=== PATIENT | male | born 1945 | race Caucasian/White ===

== ENCOUNTER 2021-02-10 06:25 | Day surgery (SDC) | payer OTHER ==
[~2021-02-10] VITALS: Ht 188 cm; Wt 152.0 kg
[~2021-02-10 06:25] MED LIST: Alphagan P5 ML; Amlodipine Bes2.5 MG PO; Betoptic S10 ML; CYCL10 PO; DONE5 PO; DYAZIDE 37.5-21 EACH PO; FINA5 PO; GABAPENTIN600 MG PO; LATA.005SO; LIDO5TO TOP; Norco 5-325 Ta1 EACH PO; OMEP20ER PO; Pravastatin Sod40 MG PO; SERT50 PO; TAMS.4ER PO; THERA-D2000 UNIT PO; TRAM50 PO; ZYRTEC10 M2 PO
--- NOTE | 2021-02-10 10:07 | NUR ---
13CC AIR REMOVED FROM R WRIST TR BAND. -BLEEDING OR SWELLING.
--- NOTE | 2021-02-10 10:50 | NUR ---
R WRIST TR BAND REMOVED. -BLEEDING OR SWELLING. PUNCTURE AREA CLEANED /C NS AND CLOTH DOT DRSG PLACED. R WRIST SPLINT REAPPLIED.
--- NOTE | 2021-02-10 10:51 | NUR ---
PT AND VERBALIZED UNDERSTANDING OF WRITTEN AND VERBAL D/C INST. IV REMOVED. PT TAKEN OUT OF THE HRT CENTER VIA W/C.
== END 2021-02-10 10:50 | disposition home or self-care (01) ==
LOC: MHTC 06:25
DX: I35.0 Nonrheumatic aortic (valve) stenosis (principal); J44.9 Chronic obstructive pulmonary disease, unspecified; E11.9 Type 2 diabetes mellitus without complications; I10 Essential (primary) hypertension; E66.01 Morbid (severe) obesity due to excess calories; K21.9 Gastro-esophageal reflux disease without esophagitis; I25.10 Atherosclerotic heart disease of native coronary artery without angina pectoris; E78.5 Hyperlipidemia, unspecified; Z68.41 Body mass index [BMI] 40.0-44.9, adult
CPT/HCPCS: 93454; 99152; C1769; C1894; J1644; J2250; J3010; J7030; J7050; Q9967

== ENCOUNTER 2021-07-11 16:37 | Inpatient (IN) | payer OTHER ==
[~2021-07-11] VITALS: Ht 188 cm; Wt 156.6 kg
[2021-07-11] MEDS ORDERED: LISI20 PO (17:06)
[2021-07-11 17:14] LABS: BASOPHILS ABSOLUTE AUTO 0.04 K/mm3 (0.00-0.23); BASOPHILS PERCENT AUTO 0 % (0-2); EOSINOPHILS ABSOLUTE AUTO 0.36 K/mm3 (0.00-0.68); EOSINOPHILS PERCENT AUTO 3 % (0-6); Hematocrit 48.1 % (37.0-53.0); Hemoglobin 15.5 g/dL (13.5-17.5); IMMATURE GRAN ABSOLUTE AUTO 0.08 K/mm3 (0.00-0.10); IMMATURE GRAN PERCENT AUTO 1 % (0-1); LYMPHOCYTES ABSOLUTE AUTO 2.98 K/mm3 (0.84-5.20); LYMPHOCYTES PERCENT AUTO 24 % (21-46); MONOCYTES ABSOLUTE AUTO 1.29 K/mm3 (0.16-1.47); MONOCYTES PERCENT AUTO 10 % (4-13); Mean Corpuscular HGB 27.6 pg (26.0-34.0); Mean Corpuscular HGB Conc 32.2 g/dL (31.5-36.5); Mean Corpuscular Volume 86 fL (80-100); Mean Platelet Volume 9.9 fL (9.1-12.4); NEUTROPHILS ABSOLUTE AUTO 7.82 K/mm3 (1.96-9.15); NEUTROPHILS PERCENT AUTO 62 % (41-73); Platelet Count 281 K/mm3 (150-400); RDW Coefficient Variation 14.4 % (11.7-14.2); RDW Standard Deviation 44.5 fL (35.1-46.3); Red Blood Cell Count 5.61 M/mm3 (4.30-5.90); White Blood Cell Count 12.57 K/mm3 (4.00-11.30)
[2021-07-11 17:34] LABS: Albumin, Blood 3.3 g/dL (3.4-5.0); Albumin/Globulin Ratio 0.9 (0.8-1.8); Bilirubin, Total 0.5 mg/dL (0.1-1.0); Bun/Creatinine Ratio 17.6 (12.0-20.0); Calcium, Blood 9.6 mg/dL (8.5-10.1); Creatinine, Blood 1.36 mg/dL (0.60-1.20); Globulin, Blood 3.8 g/dL (2.2-4.0); Potassium, Blood 3.9 mmol/L (3.5-5.5); Total Protein, Blood 7.1 g/dL (6.4-8.2)
--- NOTE | 2021-07-11 22:40 | NUR ---
ASSUMED CARE FROM ER PATIENT ARRIVED TO ICU 3 FROM ER WITH CARDIZEM INF @ 15ML/HR AND HR IN MID 130'S. ON ROOM AIR WITH SPO2 IN MID TO HIGH 90'S-OTHER VS STABLE AT THIS TIME. PATIENT IS AWAKE AND HOLDS PLEASANT CONVERSATION WITH STAFF. ANSWERS QUESTIONS APPROPRIATELY. BELONGINGS BAG PLACED IN OPEN CUPBOARD. NO FAMILY OR VISITORS AT BEDSIDE. REPORT COMPLETED WITH JUAN R SAAVEDRA.
[2021-07-11 23:05] LABS: Anti-Xa UFH, PHA Monitoring <0.10 IU/mL; International Normalized Ratio 1.01; Prothrombin Time Results 10.6 Sec (9.7-11.5)
[2021-07-11] MEDS ORDERED: DICLOFENAC PO (23:32)
--- NOTE | 2021-07-12 05:24 | NUR ---
SHIFT SUMMARY PATIENT WAS SWITCHED FROM CARDIZEM TO AMIODARONE AFTER INCREASED CARDIZEM OF 20ML/HR HAD NO EFFECT ON HEART RATE. AT THIS TIME PATIENT IS STILL ON INITIAL DOSE OF 34.5ML/HR AMIODARONE W/ HR DECREASE FROM MID 130'S TO MID 12O'S. HEPARIN GTT STARTED AT 15 UNITS/KG/HR FOLLOWING BOLUS OF 5,000 UNITS. PATIENT REQUIRED ONE DOSE OF ZOFRAN 4MG IV FOR N/V, ONE DOSE GABAPENTIN 300MG PO FOR SLEEP AND ONE DOSE OF NORCO 5MG/325MG PO FOR RT HIP PAIN WITH IMPROVEMENT. PATIENT USED URINAL FOR TOTAL OUTPUT OF 200ML URINE DURING SHIFT. NO OTHER CHANGES DURING SHIFT.
[2021-07-12 06:11] LABS: BASOPHILS ABSOLUTE AUTO 0.05 K/mm3 (0.00-0.23); BASOPHILS PERCENT AUTO 0 % (0-2); EOSINOPHILS ABSOLUTE AUTO 0.42 K/mm3 (0.00-0.68); EOSINOPHILS PERCENT AUTO 4 % (0-6); Hematocrit 44.5 % (37.0-53.0); Hemoglobin 14.3 g/dL (13.5-17.5); IMMATURE GRAN ABSOLUTE AUTO 0.13 K/mm3 (0.00-0.10); IMMATURE GRAN PERCENT AUTO 1 % (0-1); LYMPHOCYTES ABSOLUTE AUTO 3.04 K/mm3 (0.84-5.20); LYMPHOCYTES PERCENT AUTO 27 % (21-46); MONOCYTES ABSOLUTE AUTO 1.61 K/mm3 (0.16-1.47); MONOCYTES PERCENT AUTO 14 % (4-13); Mean Corpuscular HGB 27.6 pg (26.0-34.0); Mean Corpuscular HGB Conc 32.1 g/dL (31.5-36.5); Mean Corpuscular Volume 86 fL (80-100); Mean Platelet Volume 9.9 fL (9.1-12.4); NEUTROPHILS ABSOLUTE AUTO 6.06 K/mm3 (1.96-9.15); NEUTROPHILS PERCENT AUTO 54 % (41-73); Platelet Count 216 K/mm3 (150-400); RDW Coefficient Variation 14.5 % (11.7-14.2); RDW Standard Deviation 45.4 fL (35.1-46.3); Red Blood Cell Count 5.18 M/mm3 (4.30-5.90); White Blood Cell Count 11.31 K/mm3 (4.00-11.30)
[2021-07-12 06:59] LABS: Alanine Aminotransfer (ALT/SGP 32 U/L (12-78); Albumin/Globulin Ratio 0.9 (0.8-1.8); Alk Phos 60 U/L (50-136); Anion Gap 7 mmol/L (6-16); Aspartate Aminotrans (AST/SGOT 23 U/L (12-37); Bilirubin, Total 0.7 mg/dL (0.1-1.0); Blood Urea Nitrogen 24 mg/dL (8-24); Bun/Creatinine Ratio 19.4 (12.0-20.0); CHOL/HDL RATIO 4.6; CO2, Blood 23 mmol/L (21-32); Calcium, Blood 9.4 mg/dL (8.5-10.1); Chloride, Blood 110 mmol/L (98-108); Cholesterol 151 mg/dL (50-200); Creatinine, Blood 1.24 mg/dL (0.60-1.20); Globulin, Blood 3.3 g/dL (2.2-4.0); Glomerular Filtration Rate 56 (60-); Glucose, Blood 127 mg/dL (70-99); HDL Cholesterol 33 mg/dL (>39); LDL/HDL RATIO 2.5; Low Density Lipoprotein Chol 81 mg/dL (0-110); Potassium, Blood 3.7 mmol/L (3.5-5.5); Sodium, Blood 140 mmol/L (136-145); Total Protein, Blood 6.3 g/dL (6.4-8.2); Triglycerides 184 mg/dL (30-160); Very Low Density Lipoprot Chol 36 mg/dL (6-32)
--- NOTE | 2021-07-12 19:48 | NUR ---
SHIFT SUMMARY PT A/O X4 AND COOPERATIVE OF CARE. PT HR REMAINED IN 120-130'S THROUGHOUT SHIFT, RECIEVED AMIO BOLUSES AND AMIO DRIP. PT BP'S RAN 140'S BUT DROPPED TO 110'S AFTER WORKING WITH [employer] THERAPY. PT REPORTED "FEELING DIZZY AND SWEATY." PT SHORTLY EXPRESSED N/V, DR NOTIFIED BY INVOICE CHECKER. PT WAS MOVED FROM RECLINER TO BED VIA LIFT DUE TO REPORT OF DIZZINESS. PT TO BE NPO AFTER MIDNIGHT FOR SHAVONNE AND CARDIOVERSION IN THE MORNING. PT USED URINAL WHILE IN BED FOR ELIMINATION. AT BEDSIDE FOR MOST OF SHIFT, PLANS TO BE PRESENT FOR CARDIOVERSION. HEPARIN RUNNING PER EMAR.
[2021-07-13 03:51] LABS: Hematocrit 44.7 % (37.0-53.0); Hemoglobin 14.4 g/dL (13.5-17.5); Mean Platelet Volume 10.3 fL (9.1-12.4); Platelet Count 207 K/mm3 (150-400)
[2021-07-13 04:10] LABS: Albumin/Globulin Ratio 0.9 (0.8-1.8); Bilirubin, Total 0.5 mg/dL (0.1-1.0); Bun/Creatinine Ratio 16.7 (12.0-20.0); Calcium, Blood 9.1 mg/dL (8.5-10.1); Creatinine, Blood 1.38 mg/dL (0.60-1.20); Globulin, Blood 3.3 g/dL (2.2-4.0); Potassium, Blood 3.8 mmol/L (3.5-5.5); Total Protein, Blood 6.3 g/dL (6.4-8.2)
--- NOTE | 2021-07-13 06:35 | NUR ---
SHIFT SUMMARY PATIENT TRANSITIONED FROM IV AMIODARONE TO PO AMIODARONE AT BEGINNING OF THE SHIFT. PATIENT HAS BEEN NPO SINCE 0000 IN PREP FOR SHAVONNE AND CARDIOVERSION TODAY PER DR. SIEGEL, INCLUDING MEDICATIONS AND ICE CHIPS. HR MAINTAINED IN 120'S; BP REMAINED STABLE. HEPARIN INF @ 15 UNITS/KG/HR. NO OTHER CHANGES DURING SHIFT.
--- NOTE | 2021-07-13 17:57 | NUR ---
SHIFT SUMMARY; ASSUMED CARE AT 0700, SLEEPING BUT ARROUSABLE TO VOICE. HOME CPAP IN PLACE. SHAVONNE/CARDIO VERSION TODAY WITH ANESTHESIA. TOLERATED PROCEDURE WELL. SINUS 60'S FOR REMAINDER OF SHIFT, VSS. REPOSITIONS SELF IN BED, PLACED HOME CPAP WHEN NAPPING, USES URINAL IN BED. SPOUSE AT BEDSIDE DURING SHIFT. HEPARIN INFUSING AT 15GTT. PLEASANT AND COOPERATIVE WITH CARE. WILL CONTINUE TO MONITOR AND TREAT UNTIL CHANGE OF SHIFT.
--- NOTE | 2021-07-13 21:15 | NUR ---
ASSUMED CARE PATIENT SITTING UP IN BED WATCHING TELEVISION. CPAP, CELL PHONE, WATER, URINAL ON BEDSIDE TABLE. NO VISITORS OR FAMILY AT BEDSIDE. HEPARIN GTT INF @ 15 UNITS/KG/HR. MONITOR SHOWS BBB W/ RATE IN 70'S. OTHER VS STABLE. REPORT COMPLETED W/ YASMANI PETE.
[2021-07-14 04:55] LABS: Hematocrit 41.9 % (37.0-53.0); Hemoglobin 13.3 g/dL (13.5-17.5); Mean Platelet Volume 10.4 fL (9.1-12.4); Platelet Count 178 K/mm3 (150-400)
[2021-07-14 05:19] LABS: Bun/Creatinine Ratio 17.1 (12.0-20.0); Calcium, Blood 9.2 mg/dL (8.5-10.1); Creatinine, Blood 1.64 mg/dL (0.60-1.20); Potassium, Blood 3.8 mmol/L (3.5-5.5)
--- NOTE | 2021-07-14 06:05 | NUR ---
SHIFT SUMMARY PATIENT SLEPT T/O SHIFT. USED HOME CPAP WHEN SLEEPING, ROOM AIR WHEN AWAKE WITH VSS. HR REMAINED 50'S-80'S IN SINUS RHYTHM. HEPARIN CONTINUES INF @ 15 UNITS/KG/HR. USED URINAL AT BEDSIDE. NO CHANGES DURING SHIFT.
--- NOTE | 2021-07-14 09:15 | NUR ---
ASSUMED CARE: REPORT RECEIVED FROM AZAR Bueno RN. ASSUMED CARE OF THIS PT AT APPROX 0700. ON ASSESSMENT, THE PT IS AWAKE, A&O TO ALL. HE IS PLEASANT & COOPERATIVE W/ STAFF, DENIES PAIN. LS CLEAR, PT ON RA W/ O2 SATS > 95%. MONITOR SHOWS SR W/ HR 60-80s, BP STABLE. PT TOLERATING PO INTAKE WELL W/ NO GI COMPLAINTS. VOIDS URINE USING URINAL INDEPENDENTLY AT BEDSIDE. SKIN CONDITION OVERALL INTACT. Q2H REPOSITIONING W/ REMINDERS FROM STAFF. PT UP WORKING W/ THERAPY THIS AM & CURRENTLY SITTING UP IN CHAIR. HE IS HOPEFUL TO GO HOME TODAY. WILL CONTINUE TO MONITOR & UPDATE NEEDED.
[2021-07-14] MEDS ORDERED: Amiodarone HCl200 MG PO ×3 (13:13→13:18)
[2021-07-14] MEDS ORDERED: ELIQUIS5 M2 PO (13:18)
[2021-07-14] MEDS ORDERED: CLOP75 PO (13:20)
[2021-07-14] MEDS ORDERED: METO25ER PO (13:21)
[2021-07-14] MEDS ORDERED: SPIR50 PO (13:23)
[2021-07-14] MEDS ORDERED: TORSE20 PO (13:24)
--- NOTE | 2021-07-14 15:44 | NUR ---
DISCHARGE TO HOME: THE PT CONTINUES TO DO WELL THIS AFTERNOON & IS STABLE FOR DISCHARGE HOME, ORDERS PLACED BY DR VÁZQUEZ. ALL MEDICATIONS RECONCILLED & FAXED TO [facility] FOR PT TO [facility] RIBBON MACHINE OPERATOR THIS EVENING. HE VERABLIZES UNDERSTANDING OF PICKING UP MEDS ONCE DISCHARGED SO THAT HE CAN BEGIN TAKING THEM TONIGHT. PIVs & ALL MONITORS REMOVED. GWENDOLYN CARTAGENA, HAS HELPED THE PT GET DRESSED & GATHERED ALL OF HIS BELONGINGS. THE PT VERBALIZES UNDERSTANDING OF HIS DISCHARGE INSTRUCTIONS & DENIES FUTHER QUESTIONS. THIS RN HAS TAKEN THE PT OUT VIA WC & REPEATED D/C INSTRUCTIONS TO HIS , GAYE, AT APPROX 1530.
== END 2021-07-14 15:30 | disposition home or self-care (01) | DRG 309 ==
LOC: ER 16:37 → ICUW 22:30 → ICUE 22:30
PROVIDERS: Family Medicine; Pharmacist; Physician Assistant; Student in an Organized Health Care Education/Training Program; ADMIT Internal Medicine
PROC: 5A2204Z Restoration of Cardiac Rhythm, Single (ICD-10-PCS; principal; 2021-07-13)
PROC: 5A09357 Assistance with Respiratory Ventilation, Less than 24 Consecutive Hours, Continuous Positive Airway Pressure (ICD-10-PCS; 2021-07-13)
DX: I48.91 Unspecified atrial fibrillation (principal); N17.9 Acute kidney failure, unspecified; Z68.41 Body mass index [BMI] 40.0-44.9, adult; Z66 Do not resuscitate; I48.92 Unspecified atrial flutter; D72.829 Elevated white blood cell count, unspecified; I44.7 Left bundle-branch block, unspecified; I10 Essential (primary) hypertension; J44.9 Chronic obstructive pulmonary disease, unspecified; E66.01 Morbid (severe) obesity due to excess calories; F41.9 Anxiety disorder, unspecified; N40.0 Benign prostatic hyperplasia without lower urinary tract symptoms; G47.33 Obstructive sleep apnea (adult) (pediatric); E78.5 Hyperlipidemia, unspecified; Z79.899 Other long term (current) drug therapy; Z95.2 Presence of prosthetic heart valve; E11.9 Type 2 diabetes mellitus without complications; Z90.49 Acquired absence of other specified parts of digestive tract; Z98.890 Other specified postprocedural states; Y71.2 Prosthetic and other implants, materials and accessory cardiovascular devices associated with adverse incidents
CPT/HCPCS: 36415; 71045; 80048; 80053; 80061; 82947; 83880; 84443; 84484; 85014; 85018; 85025; 85049; 85520; 85610; 85730; 92960; 93005; 93010; 93312; 93325; 94640; 94660; 94664; 96365; 96375; 96376; 97110; 97162; 97166; 97530; 99285-25; A9270; C8929; J0282; J1160; J1644; J2405; J2704; J7030; J7060; J7120; Q9957

== ENCOUNTER 2021-10-09 14:16 | Emergency (ER) | payer OTHER ==
[~2021-10-09] VITALS: Ht 188 cm; Wt 158.8 kg
[~2021-10-09 14:16] MED LIST changes: +Amiodarone HCl200 MG PO; +CLOP75 PO; +DICLOFENAC PO; +ELIQUIS5 M2 PO; +LISI20 PO; +METO25ER PO; +SPIR50 PO; +TORSE20 PO
[2021-10-09 14:44] LABS: BASOPHILS ABSOLUTE AUTO 0.04 K/mm3 (0.00-0.23); BASOPHILS PERCENT AUTO 0 % (0-2); EOSINOPHILS ABSOLUTE AUTO 0.27 K/mm3 (0.00-0.68); EOSINOPHILS PERCENT AUTO 2 % (0-6); Hematocrit 40.3 % (37.0-53.0); Hemoglobin 13.1 g/dL (13.5-17.5); IMMATURE GRAN ABSOLUTE AUTO 0.07 K/mm3 (0.00-0.10); IMMATURE GRAN PERCENT AUTO 1 % (0-1); LYMPHOCYTES ABSOLUTE AUTO 2.13 K/mm3 (0.84-5.20); LYMPHOCYTES PERCENT AUTO 17 % (21-46); MONOCYTES ABSOLUTE AUTO 0.82 K/mm3 (0.16-1.47); MONOCYTES PERCENT AUTO 7 % (4-13); Mean Corpuscular HGB 27.9 pg (26.0-34.0); Mean Corpuscular HGB Conc 32.5 g/dL (31.5-36.5); Mean Corpuscular Volume 86 fL (80-100); Mean Platelet Volume 9.8 fL (9.1-12.4); NEUTROPHILS ABSOLUTE AUTO 9.15 K/mm3 (1.96-9.15); NEUTROPHILS PERCENT AUTO 73 % (41-73); Platelet Count 195 K/mm3 (150-400); RDW Standard Deviation 43.9 fL (35.1-46.3); White Blood Cell Count 12.48 K/mm3 (4.00-11.30)
[2021-10-09 14:56] LABS: Albumin/Globulin Ratio 0.9 (0.8-1.8); Bilirubin, Total 0.6 mg/dL (0.1-1.0); Bun/Creatinine Ratio 17.6 (12.0-20.0); Calcium, Blood 9.6 mg/dL (8.5-10.1); Creatinine, Blood 1.25 mg/dL (0.60-1.20); Globulin, Blood 3.5 g/dL (2.2-4.0); Total Protein, Blood 6.5 g/dL (6.4-8.2)
[2021-10-09 15:23] LABS: Influenza A, PCR NEGATIVE (NEGATIVE); Influenza B, PCR NEGATIVE (NEGATIVE); Resp Syncytial Virus, PCR NEGATIVE (NEGATIVE); SARS-Cov-2 (COVID-19) PCR, MMC NEGATIVE (NEGATIVE)
[2021-10-09 16:39] LABS: Source, Urine Clean Catch
[2021-10-09 16:50] LABS: Appearance, Urine Clear (Clear); Bilirubin, Urine Neg (Neg); Blood, Urine Neg (Neg); Color, Urine Yellow (P-Yellow); Glucose Qualitative, Urine Neg (Neg); Ketones, Urine Neg (Neg); Leukocyte Esterase, Urine Neg (Neg); Nitrite, Urine Neg (Neg); Protein, Urine 1+ (Neg); Specific Gravity, Urine 1.025 (1.003-1.022); Urobilinogen, Urine NORM (Normal)
[2021-10-09] MEDS ORDERED: AZIT250 PO (17:39)
[2021-10-09] MEDS ORDERED: ONDA4ODT MM (17:39)
[2021-10-09] MEDS ORDERED: AMOCLA875 PO (17:39)
== END 2021-10-09 17:55 | disposition home or self-care (01) ==
LOC: ER 14:16
PROVIDERS: Student in an Organized Health Care Education/Training Program
DX: J18.9 Pneumonia, unspecified organism (principal); R11.2 Nausea with vomiting, unspecified; Z20.822 Contact with and (suspected) exposure to COVID-19; I10 Essential (primary) hypertension; J44.9 Chronic obstructive pulmonary disease, unspecified; G47.30 Sleep apnea, unspecified; E11.9 Type 2 diabetes mellitus without complications; K21.9 Gastro-esophageal reflux disease without esophagitis; Z79.899 Other long term (current) drug therapy; Z79.01 Long term (current) use of anticoagulants; Z79.02 Long term (current) use of antithrombotics/antiplatelets
CPT/HCPCS: 0241U; 36415; 71046; 74018; 80053; 83605; 83690; 84484; 85025; 93005; 93010; A9270; J0456; J0696; J7050; J7120

== ENCOUNTER 2023-07-12 14:15 | Inpatient (IN) | payer OTHER ==
[~2023-07-12] VITALS: Ht 188 cm; Wt 146.0 kg
[~2023-07-12 14:15] MED LIST changes: +AMOCLA875 PO; +AZIT250 PO; +Amoxicillin500 MG PO; -Betoptic S10 ML; +Betoptic S10 ML RIGHTEYE; +CEPH500 PO; -LATA.005SO; +LATA.005SO RIGHTEYE; -METO25ER PO; +METO50ER PO; +ONDA4ODT MM; +ONDA4ODT SL; +Zithromax250 MG PO
[2023-07-12 15:23] LABS: BASOPHILS ABSOLUTE AUTO 0.03 K/mm3 (0.00-0.23); BASOPHILS PERCENT AUTO 0 % (0-2); EOSINOPHILS ABSOLUTE AUTO 0.13 K/mm3 (0.00-0.68); EOSINOPHILS PERCENT AUTO 1 % (0-6); Hematocrit 35.5 % (37.0-53.0); Hemoglobin 10.6 g/dL (13.5-17.5); IMMATURE GRAN ABSOLUTE AUTO 0.04 K/mm3 (0.00-0.10); IMMATURE GRAN PERCENT AUTO 0 % (0-1); LYMPHOCYTES ABSOLUTE AUTO 1.66 K/mm3 (0.84-5.20); LYMPHOCYTES PERCENT AUTO 16 % (21-46); MONOCYTES ABSOLUTE AUTO 0.97 K/mm3 (0.16-1.47); MONOCYTES PERCENT AUTO 9 % (4-13); Mean Corpuscular HGB Conc 29.9 g/dL (31.5-36.5); Mean Corpuscular Volume 77 fL (80-100); Mean Platelet Volume 9.9 fL (9.1-12.4); NEUTROPHILS ABSOLUTE AUTO 7.45 K/mm3 (1.96-9.15); NEUTROPHILS PERCENT AUTO 73 % (41-73); Platelet Count 286 K/mm3 (150-400); RDW Coefficient Variation 16.4 % (11.7-14.2); RDW Standard Deviation 45.6 fL (35.1-46.3); Red Blood Cell Count 4.61 M/mm3 (4.30-5.90); White Blood Cell Count 10.28 K/mm3 (4.00-11.30)
[2023-07-12 15:40] LABS: Albumin, Blood 3.4 g/dL (3.4-5.0); Albumin/Globulin Ratio 0.9 (0.8-1.8); Bilirubin, Total 0.9 mg/dL (0.1-1.0); Bun/Creatinine Ratio 13.7 (12.0-20.0); Calcium, Blood 9.7 mg/dL (8.5-10.1); Creatinine, Blood 1.53 mg/dL (0.60-1.20); Globulin, Blood 3.9 g/dL (2.2-4.0); Potassium, Blood 3.8 mmol/L (3.5-5.5); Total Protein, Blood 7.3 g/dL (6.4-8.2)
[2023-07-12 16:19] LABS: Source, Urine Clean Catch
[2023-07-12 16:29] LABS: Appearance, Urine Clear (Clear); Bilirubin, Urine Neg (Neg); Blood, Urine Neg (Neg); Color, Urine Yellow (P-Yellow); Glucose Qualitative, Urine 4+ (Neg); Ketones, Urine Neg (Neg); Leukocyte Esterase, Urine Neg (Neg); Nitrite, Urine Neg (Neg); Protein, Urine Neg (Neg); Specific Gravity, Urine 1.015 (1.003-1.022); Urobilinogen, Urine NORM (Normal)
[2023-07-12] MEDS ORDERED: NS 1,000 ML IV SCH (17:35)
[2023-07-12] MEDS ORDERED: Acetaminophen 325 MG TABLET PO ONE (17:40)
[2023-07-12] MEDS ORDERED: Acetaminophen 325 MG TABLET PO PRN (19:40)
[2023-07-12 20:17] LABS: Influenza A, PCR NEGATIVE (NEGATIVE); Influenza B, PCR NEGATIVE (NEGATIVE); Resp Syncytial Virus, PCR NEGATIVE (NEGATIVE); SARS-Cov-2 (COVID-19) PCR, MMC NEGATIVE (NEGATIVE)
[2023-07-12] MEDS ORDERED: Apixaban 5 MG Tab PO SCH (21:00)
[2023-07-12] MEDS ORDERED: ATORVASTATIN CA40 M1 PO (21:29)
[2023-07-12] MEDS ORDERED: JARDIANCE25 MG PO (21:29)
[2023-07-12] MEDS ORDERED: ROPINIROLE HC0.2510 PO (21:30)
[2023-07-12] MEDS ORDERED: FOSAMAX70 MG PO (21:30)
[2023-07-12] MEDS ORDERED: LOSARTAN POTASS25 M2 PO (21:31)
[2023-07-12] MEDS ORDERED: EUTHYROX50 MC1 PO (21:31)
[2023-07-12] MEDS ORDERED: TAMS.4ER PO (22:02)
[2023-07-12] MEDS ORDERED: ERYT.5TO BOTHEYES (22:03)
[2023-07-12] MEDS ORDERED: CLOBETASOL EMOL15 G1 TOP (22:04)
[2023-07-12] MEDS ORDERED: GORMEL TEN228 G1 TOP (22:05)
[2023-07-12] MEDS ORDERED: [UNRECOGNIZED DRUG - OTHER] TOP (22:05)
[2023-07-12] MEDS ORDERED: GENTEAL TEARS S10 GM BOTHEYES (22:13)
[2023-07-12] MEDS ORDERED: SIMBRINZA 1%-0.28 M1 RIGHTEYE (22:15)
[2023-07-12] MEDS ORDERED: ALBU90OI INH (22:19)
[2023-07-12 22:21] VITALS: BP 143/66
[2023-07-12] MEDS ORDERED: ALEVE ARTHRITI100 GM TOP (22:22)
[2023-07-12] MEDS ORDERED: OXYC5 PO (22:23)
--- NOTE | 2023-07-12 22:52 | NUR ---
ADMIT NOTE TELEMETRY ON PATIENT. 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 30-40'S BPM. INFORMED HOSPITALIST. ORDER TO TRANSFER PATIENT TO ICU RECEIVED
[2023-07-12 23:15] VITALS: BP 155/88
[2023-07-12 23:30] VITALS: BP 130/114
[2023-07-12] MEDS ORDERED: JARDIANCE10 MG (23:33)
[2023-07-12] MEDS ORDERED: Lactated Ringer's 1,000 ML IV SCH (23:45)
[2023-07-13] VITALS (77 sets, daily range): BP systolic 100–172; BP diastolic 53–116
[2023-07-13] MEDS ORDERED: Atropine Sulfate 0.1 MG/ML 10ML SYR IV ONE (00:20)
[2023-07-13] MEDS ORDERED: LORazepam 2 MG/ML 1ML Injection IV ONE ×2 (00:30→05:55)
--- NOTE | 2023-07-13 01:41 | NUR ---
ASSUMED CARE PT ARRIVED IN UNIT W/ HR 50-60'S ASYMPTOMATIC. MID ASSESSMENT/ZOLL PAD PLACEMENT, PT HR SUSTAINED IN THE 30-40'S W/ TELEMTRY SHOWING A MOBITZ TYPE 2. PT WAS SYMPTOMATIC W/ STATED DIZZINESS, BLUE LIPS, AND DISORIENTATION. TRANSCUTANEOUS PACING WAS INITIATED W/ SETTINGS MA 30, RATE 54. PT IS CURRENTLY RESTING QUIETLY W/ CPAP ON. BLOOD PRESSURE >65 W/ RATE IN THE HIGH 54-60'S. SPO2 >92%. PT DENIES SYMPTOMS AT THIS TIME.
[2023-07-13 03:48] LABS: BASOPHILS ABSOLUTE AUTO 0.02 K/mm3 (0.00-0.23); BASOPHILS PERCENT AUTO 0 % (0-2); EOSINOPHILS ABSOLUTE AUTO 0.18 K/mm3 (0.00-0.68); EOSINOPHILS PERCENT AUTO 2 % (0-6); Hematocrit 34.7 % (37.0-53.0); Hemoglobin 10.2 g/dL (13.5-17.5); IMMATURE GRAN ABSOLUTE AUTO 0.05 K/mm3 (0.00-0.10); IMMATURE GRAN PERCENT AUTO 1 % (0-1); LYMPHOCYTES ABSOLUTE AUTO 1.82 K/mm3 (0.84-5.20); LYMPHOCYTES PERCENT AUTO 20 % (21-46); MONOCYTES ABSOLUTE AUTO 0.86 K/mm3 (0.16-1.47); MONOCYTES PERCENT AUTO 9 % (4-13); Mean Corpuscular HGB 22.8 pg (26.0-34.0); Mean Corpuscular HGB Conc 29.4 g/dL (31.5-36.5); Mean Corpuscular Volume 78 fL (80-100); Mean Platelet Volume 9.7 fL (9.1-12.4); NEUTROPHILS ABSOLUTE AUTO 6.25 K/mm3 (1.96-9.15); NEUTROPHILS PERCENT AUTO 68 % (41-73); Platelet Count 263 K/mm3 (150-400); RDW Coefficient Variation 16.4 % (11.7-14.2); RDW Standard Deviation 46.5 fL (35.1-46.3); Red Blood Cell Count 4.47 M/mm3 (4.30-5.90); White Blood Cell Count 9.18 K/mm3 (4.00-11.30)
--- NOTE | 2023-07-13 04:01 | NUR ---
UPDATE DR HANSON NOTIFIED OF mA AND RATE W/ NO NEW ORDERS. RATE SET TO 54 W/ PT ASYMPTOMATIC AT THAT RATE. NO EPISODES SINCE TRANSCUTANEOUS PACING.
[2023-07-13 04:09] LABS: Albumin, Blood 3.1 g/dL (3.4-5.0); Albumin/Globulin Ratio 0.9 (0.8-1.8); Bilirubin, Total 0.6 mg/dL (0.1-1.0); Bun/Creatinine Ratio 13.1 (12.0-20.0); Calcium, Blood 8.9 mg/dL (8.5-10.1); Creatinine, Blood 1.6 mg/dL (0.60-1.20); Globulin, Blood 3.5 g/dL (2.2-4.0); Magnesium, Blood 2.5 mg/dL (1.6-2.4); Potassium, Blood 3.1 mmol/L (3.5-5.5); Total Protein, Blood 6.6 g/dL (6.4-8.2)
[2023-07-13] MEDS ORDERED: Potassium Chloride 40 MEQ in NS 250 ML IV ONE (04:20)
--- NOTE | 2023-07-13 05:29 | NUR ---
UPDATE PT WALLET IN LOCKBOX.
--- NOTE | 2023-07-13 05:29 | NUR ---
SHIFT SUMMARY PT SLEPT SINCE LAST UPDATE. NO ACUTE EVENTS SINCE. PT FREQUENTLY TURNING IN BED W/ MANAGEMENT OF PADS/WIRES NEEDED INTERMITTENTLY. PACER SETTINGS REMAIN UNCHANGED. SPO2 >92% ON CPAP; SBP 150'S*; RATE VARIABLE W/ 54-60'S. PT CONTINUES REMAIN ASYMPTOMATIC.
[2023-07-13] MEDS ORDERED: FentaNYL Citrate 50 MCG/ML 2 ML Injection ONE (06:08)
[2023-07-13] MEDS ORDERED: FentaNYL Citrate 50 MCG/ML 2 ML Injection IV PRN (06:10)
[2023-07-13] MEDS ORDERED: FentaNYL Citrate 50 MCG/ML 2 ML Injection IV ONE (06:10)
--- NOTE | 2023-07-13 06:21 | NUR ---
UPDATE DR HANSON AT BEDSIDE TO ASSESS PT. PT WOKE AND WAS DISORIENTED, YELLING AT HOSPITALIST ABOUT WHY PT IS BEING PUT "THROUGH THIS". REORIENTED PT AND REINFORCED EDUCATION ON PURPOSE OF PACER. PT IS ABLE TO ANSWER YEAR, PLACE, SITUATION CORRECTLY. PT CURRENTLY IS RESTING QUIETLY W/ FENTANYL PER EMAR FOR PACING. SETTINGS REMAIN UNCHANGED W/ CAPTURE VIEWED AND FELT PER RADIAL PULSE. PADS CHANGED AT 0600 D/T PT'S FREQUENT TURNING ALMOST REMOVING OLD PATCH. PT ALSO MENTIONED BEING UPSET AT BEING FREQUENTLY ASKED TO STRAIGHTEN ARM, EDUCATED PT THAT THIS WAS TO PREVENT KINKING OF IV CATHETER.
[2023-07-13] MEDS ORDERED: CALCITONIN-SAL3.7 M1 (08:09)
[2023-07-13] MEDS ORDERED: OZEMPIC0.25 MG/02 SC (08:10)
--- NOTE | 2023-07-13 08:35 | NUR ---
DR. MAYNARD HERE TO SEE PATIENT. DOCTOR UPDATED ON PATIENT STATUS. INFORMED THAT PATIENT RECEIVING POTASSIUM REPLACEMENT THIS AM. INFORMED THAT PATIENT WAKING ONLY TO NOXIOUS STIMULI AT THIS TIME BUT THAT PATIENT RECEIVED PRN FENTANYL AROUND 0645 THIS AM. INFORMED THAT PATIENT HAS BEEN 100% PACED SINCE ASSUMED CARE OF PATIENT. INFORMED THAT NIGHT RN REPORTED THAT PATIENT HAS BEEN PACED 100% THE LAST COUPLE OF HOURS AND OFF AND ON BEFORE THAT. INFORMED THAT RECEIVED REPORT THAT PATIENT CAME DOWN TO ICU FOR HR IN THE 30S AND THAT PATIENT WAS SYMPTOMATIC WITH BLUE LIPS, DIZZY AND MENTATION CHANGES. INFORMED THAT RECEIVED REPORT THAT PATIENT WAS TRYING TO DIG THROUGH UNLABELED HOME PILL CONTAINER ON EARLIER SHIFT AND ALSO ONLY SEES 10% OUT OF R EYE ONLY. DR. MAYNARD TURNED ZOLL PACER OFF AND STATED TO ADMINISTER ATROPINE IF PATIENT HAS SYMPTOMATIC BRADYCARDIA LESS THAN 40.
[2023-07-13] MEDS ORDERED: Atropine Sulfate 0.1 MG/ML 10ML SYR IV PRN (08:40)
[2023-07-13] MEDS ORDERED: HydrALAZINE HCl 20 MG / ML 1ML Vial IV PRN (08:50)
[2023-07-13] MEDS ORDERED: Enoxaparin 40 MG/0.4 ML SYR SC SCH (09:00)
--- NOTE | 2023-07-13 09:30 | NUR ---
INITIAL ASSESSMENT PATIENT SLEEPY AND RESPONSIVE TO NOXIOUS STIMULI WHEN CAME ON SHIFT. PATIENT HAD RECEIVED PRN FENTANYL AROUND 0645 THIS AM. PATIENT NOW AWAKE, ALERT AND ORIENTED X 4. PATIENT AFEBRILE. PATIENT STATES HE HAS SOME PAIN IN L RIBS/ HIP FROM RECENT FALL AT HOME BUT THAT THE PAIN IS MANAGEABLE AT THIS TIME. PATIENT SLIGHTLY WEAK BUT ABLE TO MOVE ALL EXTREMITIES AND REPOSITION SELF IN BED. PATIENT BLIND IN L EYE AND REPORTS HE HAS 10% VISION IN R EYE. PATIENT SATTING 90% AND GREATER ON RA WHILE AWAKE. PATIENT ON CPAP FOR SLEEP. LUNGS CLEAR/ DIM. PATIENT ON TRANSCUTANEOUS PACER THIS AM AT MA 30 AND RATE OF 54 AND WAS BEING PACED 100%. DR. LACY CAME IN ROOM AND TURNED PACER OFF. PATIENT NOW SB WITH BBB, HR 50S TO 60S. SBP IN THE 150S. GI WNL. PATIENT REPORTS LAST BM WAS YESTERDAY. PATIENT USING URINAL INDEPENDENTLY. URINE DARK YELLOW IN COLOR. PATIENT REPORTS BURNING WITH URINATION AND THAT HE HAD A RECENT UTI. SKIN PALE AND COOL. LARGE BRUISES TO R FLANK AND R ABD FROM RECENT FALL AT HOME. LR INFUSING AT 75 MLS/ HOUR. PATIENT RECEIVING POTASSIUM REPLACEMENT AT THIS TIME. BED LOW, CALL LIGHT IN REACH. CARE CONTINUES.
[2023-07-13] MEDS ORDERED: AmLODIPine Besylate 5 MG Tab PO SCH (10:00)
--- NOTE | 2023-07-13 12:00 | NUR ---
DR. BENSON CALLED AND INFORMED THAT PATIENT HR 38 TO 41 AND THAT PATIENT BECAME LIGHTHEADED AND DIZZY WHEN MOVING FROM LYING POSITION TO SITTING POSITION. INFORMED THAT ATROPINE GIVEN. NO ORDERS AT THIS TIME.
--- NOTE | 2023-07-13 12:01 | NUR ---
PATIENT AFEBRILE. PATIENT IN SECOND DEGREE, TYPE 2. HR 30S TO 60S. PATIENT ASYMPTOMATIC. SBP IN THE 150S. GLUCOSE 133. NO COMPLAINTS. NO OTHER ACUTE CHANGES TO NOTE ON AT THIS TIME. CARE CONTINUES.
[2023-07-13] MEDS ORDERED: rOPINIRole HCl 0.25 MG Tab PO SCH (14:00)
--- NOTE | 2023-07-13 16:00 | NUR ---
NO ACUTE CHANGES TO NOTE ON AT THIS TIME. VSS. NO COMPLAINTS. CARE CONTINUES.
--- NOTE | 2023-07-13 18:50 | NUR ---
SHIFT SUMMARY PATIENT REMAINED ALERT AND ORIENTED X 4, AFEBRILE. PATIENT STATED PAIN MANAGEABLE THIS SHIFT TO R HIP AND R ABD WHERE PATIENT FELL AT HOME. PATIENT REMAINED SATTING 90% AND GREATER ON RA WHILE AWAKE. PATIENT 100% PACED THIS AM ON TRANSCUTANEOUS PACER. DR. LACY TURNED PACER OFF AND PATIENT HAS BEEN SB WITH BBB AND FIRST DEGREE, BBB AND SECOND DEGREE TYPE 2. HR 30S TO 80S. SBP 100 TO 160S. ATROPINE GIVEN OT THIS SHIFT FOR SYMPTOMATIC BRADYCARDIA. GI WNL. PATIENT HAS GOOD APPETITE. PATIENT HAD BOWEL MOVEMENT THIS SHIFT. PATIENT HAD 900 MLS OF URINE OUTPUT. PATIENT REPORTS BURNING WITH URINATION FROM RECENT UTI. NO CHANGES TO SKIN NOTED. PATIENT REPOSITIONED SELF IN BED MOST OF THE TIME WITH VERBAL CUES. PATIENT HAD COMPLETE BED BATH THIS SHIFT. LR AT 75 MLS/ HOUR COMPLETE. PATIENT RECEIVED POTASSIUM REPLACEMENT THIS AM. ECHO PERFORMED THIS SHIFT. HOME MED REC COMPLETED THIS SHIFT (DR. CAMPBELL AND DR. LACY INFORMED). BLOOD SUGARS 100 TO 133. CAME IN TO VISIT [facility]. NO COMPLAINTS AT THIS TIME. BED LOW, CALL LIGHT IN REACH. REPORT WILL BE GIVEN TO ASSUMING BAILER TENDERS SUPERVISOR NURSE SHORTLY.
[2023-07-13] MEDS ORDERED: Atorvastatin 40 MG Tab PO SCH (21:00)
[2023-07-13] MEDS ORDERED: Timolol 0.25% Opth Soln 5 ml RIGHTEYE SCH (21:00)
[2023-07-13] MEDS ORDERED: Latanoprost 0.005% Opth Soln 2.5 ML RIGHTEYE SCH (21:00)
--- NOTE | 2023-07-13 21:45 | NUR ---
ASSUMPTION OF CARE/ASSESSMENT: ASSUMED CARE OF PT AT 1900. PT IS A&O X 4, PLEASANT AND COOPERATIVE WITH CARE. 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 PT USING HOME CPAP WHILE SLEEPING; SPO2 94<. PT LUNG SOUNDS ARE CLEAR WITH DIM BASES AND PT HAS NO C/O SOB AT THIS TIME. PT WITH FIRST DEGREE HEART BLOCK ON MONITOR WITH HR 60-70'S, SBP 130-150'S AND DENIES CHEST PAIN/PRESSURE AT THIS TIME. PT HAS PACER PADS IN PLACE BUT IS NOT BEING PACED AT THIS TIME; NEW PACER PADS PLACED AT START OF SHIFT. + BOWEL TONES NOTED, ABD OBESE, SOFT AND NON-TENDER. PT TOLEERATES PO INTAKE AND WILL BE NPO AT MIDNIGHT IN PREPARATION FOR POSSIBLE IMPLANTED PACEMAKER TOMORROW. PT USING URINAL INDEPENDENTLY; URINE VEENA. WONG IN BED AND ABLE TO REPOSITION INDEPENDENTLY. BED LOWERED, CALL LIGHT IN REACH. PT IS SLEEPING AT THIS TIME.
[2023-07-14] VITALS (22 sets, daily range): BP systolic 137–171; BP diastolic 60–116
[2023-07-14 03:57] LABS: BASOPHILS ABSOLUTE AUTO 0.02 K/mm3 (0.00-0.23); BASOPHILS PERCENT AUTO 0 % (0-2); EOSINOPHILS ABSOLUTE AUTO 0.13 K/mm3 (0.00-0.68); EOSINOPHILS PERCENT AUTO 2 % (0-6); Hematocrit 33.4 % (37.0-53.0); Hemoglobin 9.9 g/dL (13.5-17.5); IMMATURE GRAN ABSOLUTE AUTO 0.03 K/mm3 (0.00-0.10); IMMATURE GRAN PERCENT AUTO 0 % (0-1); LYMPHOCYTES ABSOLUTE AUTO 1.57 K/mm3 (0.84-5.20); LYMPHOCYTES PERCENT AUTO 19 % (21-46); MONOCYTES ABSOLUTE AUTO 0.64 K/mm3 (0.16-1.47); MONOCYTES PERCENT AUTO 8 % (4-13); Mean Corpuscular HGB 22.9 pg (26.0-34.0); Mean Corpuscular HGB Conc 29.6 g/dL (31.5-36.5); Mean Corpuscular Volume 77 fL (80-100); Mean Platelet Volume 9.7 fL (9.1-12.4); NEUTROPHILS ABSOLUTE AUTO 5.83 K/mm3 (1.96-9.15); NEUTROPHILS PERCENT AUTO 71 % (41-73); Platelet Count 260 K/mm3 (150-400); RDW Coefficient Variation 16.3 % (11.7-14.2); RDW Standard Deviation 45.9 fL (35.1-46.3); Red Blood Cell Count 4.32 M/mm3 (4.30-5.90); White Blood Cell Count 8.22 K/mm3 (4.00-11.30)
[2023-07-14 04:19] LABS: Albumin/Globulin Ratio 0.9 (0.8-1.8); Bilirubin, Total 0.8 mg/dL (0.1-1.0); Bun/Creatinine Ratio 15.4 (12.0-20.0); Calcium, Blood 9.1 mg/dL (8.5-10.1); Creatinine, Blood 1.17 mg/dL (0.60-1.20); Globulin, Blood 3.2 g/dL (2.2-4.0); Potassium, Blood 3.6 mmol/L (3.5-5.5); Total Protein, Blood 6.2 g/dL (6.4-8.2)
--- NOTE | 2023-07-14 05:52 | NUR ---
SHIFT SUMMARY: NO ACUTE CHANGES OVERNIGHT; PT SLEPT THROUGHOUT THE NIGHT AND CPAP REMAINED IN PLACE. HR DID NOT DROP BELOW 50, AT ONE POINT PT HYPERTENSIVE WITH SBP 170'S AND PRN HYDRALAZINE GIVEN. CURRENTLY SBP 150'S ON MONITOR. BED LOWERED, CALL LIGHT IN REACH, WILL REPORT OFF TO ONCOMING RN
[2023-07-14] MEDS ORDERED: Levothyroxine Sodium 0.05 MG Tab PO SCH (08:00)
--- NOTE | 2023-07-14 08:30 | NUR ---
INITIAL ASSESSMENT PATIENT ALERT AND ORIENTED X 4, AFEBRILE. PATIENT DENIES PAIN AT THIS TIME. PATIENT BLIND IN L EYE AND REPORTS BEING ABLE TO SEE 10% OUT OF HIS R EYE. PATIENT SATTING 90% AND GREATER ON RA WHILE AWAKE OR ON CPAP WHILE SLEEPING. PATIENT IN FIRST DEGREE HB WITH BBB, HR IN THE 60S. SBP 150S TO 160S. GI WNL. BURNING REPORTED WITH URINATION FROM RECENT UTI. PATIENT USES URINAL INDEPENDENTLY. SKIN PALE AND COOL. LARGE BRUISES NOTED TO R FLANK AND R ABD. BED LOW, CALL LIGHT IN REACH. CARE CONTINUES.
[2023-07-14] MEDS ORDERED: BRINZOLAMIDE RIGHTEYE SCH (09:00)
[2023-07-14] MEDS ORDERED: Finasteride 5 MG Tab PO SCH (09:00)
[2023-07-14] MEDS ORDERED: BRIMONIDINE RIGHTEYE SCH (09:00)
[2023-07-14] MEDS ORDERED: Apixaban 5 MG Tab PO SCH (09:00)
[2023-07-14] MEDS ORDERED: Losartan Potassium 25 MG Tab PO SCH (09:00)
[2023-07-14] MEDS ORDERED: Sertraline HCl 50 MG Tab PO SCH (09:00)
[2023-07-14] MEDS ORDERED: AmLODIPine Besylate 5 MG Tab PO SCH (09:00)
[2023-07-14] MEDS ORDERED: BETAXOLOL 0.25% RIGHTEYE SCH (09:00)
[2023-07-14] MEDS ORDERED: Tamsulosin HCl 0.4 MG Cap PO SCH (09:00)
[2023-07-14] MEDS ORDERED: Empagliflozin 25 MG TAB PO SCH (09:00)
--- NOTE | 2023-07-14 12:35 | NUR ---
PATIENT AFEBRILE. HR 80S TO 90S. SBP IN THE 150S. BLOOD SUGAR OF 112. NO OTHER ACUTE CHANGES TO NOTE ON AT THIS TIME. NO COMPLAINTS. CARE CONTINUES.
[2023-07-14] MEDS ORDERED: AMLO10 PO (12:55)
--- NOTE | 2023-07-14 14:00 | NUR ---
SHIFT SUMMARY PATIENT REMAINED ALERT AND ORIENTED X 4, AFEBRILE. PATIENT HAD NO COMPLAINTS OF PAIN OR DISCOMFORT THIS SHIFT. PATIENT BACK AND FORTH FROM BED TO COMMODE AND CHAIR THIS SHIFT. PATIENT HAD NO COMPLAINTS OF SYNCOPE OR DIZZINESS THIS SHIFT. PATIENT REMAINED SATTING 90% AND GREATER ON RA WHILE AWAKE. PATIENT REMAINED IN FIRST DEGREE/ BBB RHYTHM THIS SHIFT. HR RANGED FROM 60S TO 90S. SBP RANGED FROM 140S TO 160S. PATIENT HAD GOOD APPETITE. PATIENT HAD 1 BOWEL MOVEMENT THIS SHIFT. PATIENT HAD ADEQUATE URINE OUTPUT THIS SHIFT. NO CHANGES TO SKIN NOTED. HEART CENTER STAFF CAME AND PLACED ZIO PATCH ON PATIENT L CHEST. IVS REMOVED. PATIENT'S HERE. DISCHARGE INSTRUCTIONS READ AND EXPLAINED TO PATIENT. INFORMED THAT VERBAL ORDER FROM DR. BUTLER TO STOP METOPROLOL IN ADDITION TO THE AMIO. PATIENT STATES HE UNDERSTANDS DISCHARGE INSTRUCTIONS. PRESCRIPTION FOR NORVASC CALLED IN TO [facility]. JAVA PROJECT MANAGER HAS TAKEN PATIENT OUT TO 'S CAR. DISCHARGE COMPLETE.
== END 2023-07-14 13:45 | disposition home or self-care (01) | DRG 309 ==
LOC: ER 14:15 → MEDS 14:16 → ICUE 14:16 → MEDS 22:03 → ICUE 22:51
PROVIDERS: Emergency Medicine; Family Medicine; Physician Assistant; ADMIT Student in an Organized Health Care Education/Training Program
DX: I44.1 Atrioventricular block, second degree (principal); Z68.41 Body mass index [BMI] 40.0-44.9, adult; R55 Syncope and collapse; E11.9 Type 2 diabetes mellitus without complications; G47.33 Obstructive sleep apnea (adult) (pediatric); J44.9 Chronic obstructive pulmonary disease, unspecified; I10 Essential (primary) hypertension; E78.5 Hyperlipidemia, unspecified; N40.0 Benign prostatic hyperplasia without lower urinary tract symptoms; F41.9 Anxiety disorder, unspecified; H54.40 Blindness, one eye, unspecified eye; E66.01 Morbid (severe) obesity due to excess calories; I48.0 Paroxysmal atrial fibrillation; E03.9 Hypothyroidism, unspecified; Z95.2 Presence of prosthetic heart valve; Z79.01 Long term (current) use of anticoagulants; Z79.890 Hormone replacement therapy; Z79.899 Other long term (current) drug therapy
CPT/HCPCS: 0241U; 36415; 70450; 71046; 74177; 80053; 81003; 82947; 83735; 84443; 84484; 85025; 93005; 93010; 93246; 93306; 96372; 96374; 96375; 96376; 97161; 99285-25; A9270; C1751; G0378; J0360; J0461; J1650; J2060; J3010; J3480; J7030; J7050; J7120; Q9967

== ENCOUNTER 2024-01-17 01:33 | Day surgery (SDC) | payer OTHER ==
[~2024-01-17 01:33] MED LIST changes: +ALBU90OI INH; +ALEVE ARTHRITI100 GM TOP; +AMLO10 PO; +ATORVASTATIN CA40 M1 PO; +CALCITONIN-SAL3.7 M1; +CLOBETASOL EMOL15 G1 TOP; +ERYT.5TO BOTHEYES; +EUTHYROX50 MC1 PO; +FOSAMAX70 MG PO; +GABA300 PO; +GENTEAL TEARS S10 GM BOTHEYES; +GORMEL TEN228 G1 TOP; +JARDIANCE10 MG; +JARDIANCE25 MG PO; +LOSARTAN POTASS25 M2 PO; +OXYC5 PO; +OZEMPIC0.25 MG/02 SC; +ROPINIROLE HC0.2510 PO; +SIMBRINZA 1%-0.28 M1 RIGHTEYE; +Sod Ferric Gluc Complx/Sucrose 125 MG in NS 100 ML IV SCH; +[UNRECOGNIZED DRUG - OTHER] TOP
[2024-01-17 15:48] VITALS: BP 112/66
--- NOTE | 2024-01-17 16:39 | NUR ---
PT HAS CAREGIVER4 HR/DAY MON-FRI.
[2024-01-17] MEDS ORDERED: FERSU300 PO (16:50)
[2024-01-17] MEDS ORDERED: FERRLECIT IV (16:54)
== END 2024-01-17 17:00 | disposition home or self-care (01) ==
LOC: ATC 01:33
DX: D50.9 Iron deficiency anemia, unspecified (principal); E78.2 Mixed hyperlipidemia; F43.12 Post-traumatic stress disorder, chronic; I25.10 Atherosclerotic heart disease of native coronary artery without angina pectoris; I13.0 Hypertensive heart and chronic kidney disease with heart failure and stage 1 through stage 4 chronic kidney disease, or unspecified chronic kidney disease; I50.22 Chronic systolic (congestive) heart failure; N18.31 Chronic kidney disease, stage 3a; K21.9 Gastro-esophageal reflux disease without esophagitis; J44.9 Chronic obstructive pulmonary disease, unspecified; E66.01 Morbid (severe) obesity due to excess calories; I48.91 Unspecified atrial fibrillation; Z79.01 Long term (current) use of anticoagulants; Z79.899 Other long term (current) drug therapy; Z88.0 Allergy status to penicillin; Z91.013 Allergy to seafood
CPT/HCPCS: 96365; J2916

== ENCOUNTER 2024-01-18 01:04 | Day surgery (SDC) | payer OTHER ==
[~2024-01-18 01:04] MED LIST changes: +FERRLECIT IV; +FERSU300 PO; -Sod Ferric Gluc Complx/Sucrose 125 MG in NS 100 ML IV SCH
[2024-01-18] MEDS ORDERED: Sod Ferric Gluc Complx/Sucrose 125 MG in NS 100 ML IV SCH (06:00)
[2024-01-18 15:57] VITALS: BP 133/70
== END 2024-01-18 17:13 | disposition home or self-care (01) ==
LOC: ATC 01:04
DX: E61.1 Iron deficiency (principal); J44.9 Chronic obstructive pulmonary disease, unspecified; I13.0 Hypertensive heart and chronic kidney disease with heart failure and stage 1 through stage 4 chronic kidney disease, or unspecified chronic kidney disease; E11.22 Type 2 diabetes mellitus with diabetic chronic kidney disease; N18.31 Chronic kidney disease, stage 3a; I50.22 Chronic systolic (congestive) heart failure; E78.2 Mixed hyperlipidemia; F43.12 Post-traumatic stress disorder, chronic; I48.0 Paroxysmal atrial fibrillation; E03.9 Hypothyroidism, unspecified; I25.10 Atherosclerotic heart disease of native coronary artery without angina pectoris; M81.0 Age-related osteoporosis without current pathological fracture; G47.33 Obstructive sleep apnea (adult) (pediatric); E66.01 Morbid (severe) obesity due to excess calories; Z68.41 Body mass index [BMI] 40.0-44.9, adult; Z79.899 Other long term (current) drug therapy; Z88.0 Allergy status to penicillin; Z91.013 Allergy to seafood; Z95.0 Presence of cardiac pacemaker
CPT/HCPCS: 96365; J2916

== ENCOUNTER 2024-01-19 03:01 | Day surgery (SDC) | payer OTHER ==
[~2024-01-19 03:01] MED LIST changes: +Sod Ferric Gluc Complx/Sucrose 125 MG in NS 100 ML IV SCH
[2024-01-19 15:40] VITALS: BP 139/96
== END 2024-01-19 16:50 | disposition home or self-care (01) ==
LOC: ATC 03:01
DX: E61.1 Iron deficiency (principal); I11.0 Hypertensive heart disease with heart failure; I50.22 Chronic systolic (congestive) heart failure; E11.9 Type 2 diabetes mellitus without complications; E78.2 Mixed hyperlipidemia; E03.8 Other specified hypothyroidism; G47.33 Obstructive sleep apnea (adult) (pediatric); I25.10 Atherosclerotic heart disease of native coronary artery without angina pectoris; I48.0 Paroxysmal atrial fibrillation; J44.9 Chronic obstructive pulmonary disease, unspecified; K21.9 Gastro-esophageal reflux disease without esophagitis; E66.01 Morbid (severe) obesity due to excess calories; Z68.41 Body mass index [BMI] 40.0-44.9, adult; Z88.0 Allergy status to penicillin; Z79.01 Long term (current) use of anticoagulants; Z79.899 Other long term (current) drug therapy
CPT/HCPCS: 96365; J2916

== ENCOUNTER 2024-01-20 01:45 | Day surgery (SDC) | payer OTHER ==
[2024-01-20 16:13] VITALS: BP 139/96
== END 2024-01-20 17:28 | disposition home or self-care (01) ==
LOC: ATC 01:45
DX: E61.1 Iron deficiency (principal); J44.9 Chronic obstructive pulmonary disease, unspecified; I25.10 Atherosclerotic heart disease of native coronary artery without angina pectoris; I11.0 Hypertensive heart disease with heart failure; I50.22 Chronic systolic (congestive) heart failure; E03.9 Hypothyroidism, unspecified; E78.2 Mixed hyperlipidemia; G47.33 Obstructive sleep apnea (adult) (pediatric); I48.0 Paroxysmal atrial fibrillation; M81.0 Age-related osteoporosis without current pathological fracture; K21.9 Gastro-esophageal reflux disease without esophagitis; E66.01 Morbid (severe) obesity due to excess calories; Z68.41 Body mass index [BMI] 40.0-44.9, adult; Z79.83 Long term (current) use of bisphosphonates; Z79.01 Long term (current) use of anticoagulants; Z79.890 Hormone replacement therapy; Z79.899 Other long term (current) drug therapy; Z88.0 Allergy status to penicillin; Z91.013 Allergy to seafood; Z91.02 Food additives allergy status
CPT/HCPCS: 96365; J2916

== ENCOUNTER 2024-01-21 04:22 | Day surgery (SDC) | payer OTHER ==
[2024-01-21 15:58] VITALS: BP 138/73
== END 2024-01-21 17:13 | disposition home or self-care (01) ==
LOC: ATC 04:22
DX: E61.1 Iron deficiency (principal); J44.9 Chronic obstructive pulmonary disease, unspecified; I13.0 Hypertensive heart and chronic kidney disease with heart failure and stage 1 through stage 4 chronic kidney disease, or unspecified chronic kidney disease; E11.22 Type 2 diabetes mellitus with diabetic chronic kidney disease; N18.31 Chronic kidney disease, stage 3a; I50.22 Chronic systolic (congestive) heart failure; K21.9 Gastro-esophageal reflux disease without esophagitis; M81.0 Age-related osteoporosis without current pathological fracture; I25.10 Atherosclerotic heart disease of native coronary artery without angina pectoris; E03.9 Hypothyroidism, unspecified; E78.2 Mixed hyperlipidemia; F43.12 Post-traumatic stress disorder, chronic; G47.33 Obstructive sleep apnea (adult) (pediatric); I48.0 Paroxysmal atrial fibrillation; E66.01 Morbid (severe) obesity due to excess calories; Z68.41 Body mass index [BMI] 40.0-44.9, adult; Z79.01 Long term (current) use of anticoagulants; Z79.84 Long term (current) use of oral hypoglycemic drugs; Z79.899 Other long term (current) drug therapy; Z88.0 Allergy status to penicillin; Z91.013 Allergy to seafood; Z91.02 Food additives allergy status; Z95.0 Presence of cardiac pacemaker
CPT/HCPCS: 96365; J2916

== ENCOUNTER 2024-05-27 02:05 | Observation (INO) | payer OTHER ==
[~2024-05-27] VITALS: Ht 188 cm; Wt 148.1 kg
[~2024-05-27 02:05] MED LIST changes: -Sod Ferric Gluc Complx/Sucrose 125 MG in NS 100 ML IV SCH
[2024-05-27] MEDS ORDERED: Albuterol 2.5 MG/3 ML VIAL INH SCH ×2 (02:15→04:35)
[2024-05-27] MEDS ORDERED: Ondansetron HCl 2 MG / ML 2ML Vial IV ONE (02:15)
[2024-05-27] MEDS ORDERED: MethylPREDNISolone Sod Succ 125 MG Vial IV ONE (02:15)
[2024-05-27 02:26] LABS: PCO2 Arterial 27.4 mmHg (35-45); PO2 Arterial 51.4 mmHg (80-100); pH Blood Arterial 7.45 (7.35-7.45)
[2024-05-27 02:37] LABS: BASOPHILS ABSOLUTE AUTO 0.02 K/mm3 (0.00-0.23); BASOPHILS PERCENT AUTO 0 % (0-2); EOSINOPHILS ABSOLUTE AUTO 0.12 K/mm3 (0.00-0.68); EOSINOPHILS PERCENT AUTO 1 % (0-6); Hematocrit 46.5 % (37.0-53.0); Hemoglobin 14.8 g/dL (13.5-17.5); IMMATURE GRAN ABSOLUTE AUTO 0.04 K/mm3 (0.00-0.10); IMMATURE GRAN PERCENT AUTO 0 % (0-1); LYMPHOCYTES ABSOLUTE AUTO 0.85 K/mm3 (0.84-5.20); LYMPHOCYTES PERCENT AUTO 8 % (21-46); MONOCYTES ABSOLUTE AUTO 0.19 K/mm3 (0.16-1.47); MONOCYTES PERCENT AUTO 2 % (4-13); Mean Corpuscular HGB 25.1 pg (26.0-34.0); Mean Corpuscular HGB Conc 31.8 g/dL (31.5-36.5); Mean Corpuscular Volume 79 fL (80-100); Mean Platelet Volume 9.7 fL (9.1-12.4); NEUTROPHILS ABSOLUTE AUTO 8.93 K/mm3 (1.96-9.15); NEUTROPHILS PERCENT AUTO 88 % (41-73); Platelet Count 219 K/mm3 (150-400); RDW Coefficient Variation 18.5 % (11.7-14.2); RDW Standard Deviation 50.4 fL (35.1-46.3); Red Blood Cell Count 5.89 M/mm3 (4.30-5.90); White Blood Cell Count 10.15 K/mm3 (4.00-11.30)
[2024-05-27 03:01] LABS: Alanine Aminotransfer (ALT/SGP 17 U/L (12-78); Albumin, Blood 3.5 g/dL (3.4-5.0); Albumin/Globulin Ratio 0.9 (0.8-1.8); Alk Phos 69 U/L (50-136); Anion Gap 13 mmol/L (3-11); Aspartate Aminotrans (AST/SGOT 12 U/L (12-37); Bilirubin, Total 0.8 mg/dL (0.1-1.0); Blood Urea Nitrogen 17 mg/dL (8-24); CO2, Blood 22 mmol/L (21-32); Calcium, Blood 9.5 mg/dL (8.5-10.1); Chloride, Blood 108 mmol/L (98-108); Creatinine, Blood 1.31 mg/dL (0.60-1.20); Globulin, Blood 3.7 g/dL (2.2-4.0); Glomerular Filtration Rate 55 (60-); Glucose, Blood 153 mg/dL (70-99); Potassium, Blood 3.9 mmol/L (3.5-5.5); Sodium, Blood 139 mmol/L (136-145); Total Protein, Blood 7.2 g/dL (6.4-8.2)
[2024-05-27 03:18] LABS: Influenza A, PCR NEGATIVE (NEGATIVE); Influenza B, PCR NEGATIVE (NEGATIVE); Resp Syncytial Virus, PCR NEGATIVE (NEGATIVE); SARS-Cov-2 (COVID-19) PCR, MMC NEGATIVE (NEGATIVE)
[2024-05-27] MEDS ORDERED: Ipratropium/Albuterol SulF 2.5-0.5MG/3 ML Amp INH PRN (05:50)
[2024-05-27] MEDS ORDERED: FLU VACC TS2024-25(6MOS UP)/PF 45 MCG/0.5 ML SYRINGE IM ONE (05:50)
[2024-05-27] MEDS ORDERED: Ondansetron HCl 2 MG / ML 2ML Vial IV PRN (05:50)
[2024-05-27] MEDS ORDERED: Azithromycin 500 MG in NS 250 ML IV SCH (06:04)
[2024-05-27] MEDS ORDERED: Insulin Human Lispro 100 Units/ML 3ML Syringe SC SCH (07:30)
[2024-05-27] MEDS ORDERED: NS 1,000 ML IV ONE ×2 (07:40→13:45)
[2024-05-27 07:42] LABS: Source, Urine Clean Catch
[2024-05-27 07:55] LABS: Appearance, Urine Clear (Clear); Bilirubin, Urine Neg (Neg); Blood, Urine Neg (Neg); Color, Urine Yellow (P-Yellow); Glucose Qualitative, Urine 4+ (Neg); Ketones, Urine Neg (Neg); Leukocyte Esterase, Urine Neg (Neg); Nitrite, Urine Neg (Neg); Protein, Urine 1+ (Neg); Specific Gravity, Urine 1.025 (1.003-1.022); Urobilinogen, Urine NORM (Normal)
[2024-05-27] MEDS ORDERED: MethylPREDNISolone Sod Succ 125 MG Vial IV SCH ×2 (08:00→09:00)
[2024-05-27] MEDS ORDERED: Tamsulosin HCl 0.4 MG Cap PO SCH (09:00)
[2024-05-27] MEDS ORDERED: Atorvastatin 10 MG Tab PO SCH (09:00)
[2024-05-27] MEDS ORDERED: Loratadine 10 MG Tab PO SCH (09:00)
[2024-05-27] MEDS ORDERED: Empagliflozin 25 MG TAB PO SCH (09:00)
[2024-05-27] MEDS ORDERED: Losartan Potassium 25 MG Tab PO SCH (09:00)
[2024-05-27] MEDS ORDERED: Torsemide 20 MG TAB PO SCH (09:00)
[2024-05-27] MEDS ORDERED: AmLODIPine Besylate 5 MG Tab PO SCH (09:00)
[2024-05-27] MEDS ORDERED: rOPINIRole HCl 0.25 MG Tab PO SCH ×2 (09:00→21:00)
[2024-05-27] MEDS ORDERED: Enoxaparin 40 MG/0.4 ML SYR SC SCH (09:00)
[2024-05-27] MEDS ORDERED: Sertraline HCl 100 MG Tab PO SCH (09:00)
[2024-05-27] MEDS ORDERED: Apixaban 5 MG Tab PO SCH (09:00)
[2024-05-27] MEDS ORDERED: Finasteride 5 MG Tab PO SCH (09:00)
[2024-05-27] MEDS ORDERED: Calcitonin Salmon 3.7 ML Nasal Spray SCH (09:00)
[2024-05-27 09:02] VITALS: BP 122/56
--- NOTE | 2024-05-27 11:14 | NUR ---
ADMIT PT A&OX4 WITH SOME DROWSINESS. PT CAME TO ROOM AT 0900. PT STAND PIVOT TO BED. PT ON 4L O2 ON ADMISION SPO2 IS 95%. PT ON TELE. HOB ELEVATED. INCENTIVE SPIROMETER AT BEDSIDE, PT DISPLAYED CORRECT USE. PT BED IN LOWEST POSITION, CALL LIGHT IN REACH. PT ORIENTED TO ROOM/UNIT/CALL LIGHT.
[2024-05-27 11:25] VITALS: BP 109/63
[2024-05-27 16:00] VITALS: BP 102/65
[2024-05-27 19:16] VITALS: BP 136/78
--- NOTE | 2024-05-27 19:21 | NUR ---
SHIFT SUMMARY PT A&OX4. PT ADMITTED DUE TO COPD EXACERBATION. PT HAS NOT REPORTED SOB OR CHEST DISCOMFORT. PT WAS AT BEDSIDE FOR PART OF SHIFT. PT VOIDS. PT EATS ADEQUATE. PT HOB ELEVATED. PT ACHS, INSULIN COVERED WITH SLIDING SCALE. PT ON 3L VIA N/C, SPO2 IS 92%. PT HAS CPAP AT BEDSIDE. PT ON TELE, INCENTIVE SPIROMETER AT BEDSIDE. PT ON CONT. PULSE OX. PT IS A SBA WITH FWW TO TOILET DUE TO CORDS LINES. PT HAS NS RUNNING AT 75ML/HR. PT REPORTS NO PAIN. PT IN BED, BED IN LOWEST POSITION. RESPIRATORY THERAPY CAME TO SET UP CPAP EQUIPMENT. CALLED DR. SHEPARD FOR O2 ORDER, DR. SHEPARD STATED "WILL ENTER IN ORDER".PT CALLS APPROPRIATELY.
[2024-05-27] MEDS ORDERED: BRIMONIDINE 0.2% RIGHTEYE SCH (21:00)
[2024-05-27] MEDS ORDERED: Gabapentin 300 MG Cap PO SCH (21:00)
[2024-05-27] MEDS ORDERED: Latanoprost 0.005% Opth Soln 2.5 ML RIGHTEYE SCH (21:00)
[2024-05-27] MEDS ORDERED: OPTH RIGHTEYE SCH (21:00)
[2024-05-27] MEDS ORDERED: BRINZOLAMIDE 1% RIGHTEYE SCH (21:00)
[2024-05-27 23:51] VITALS: BP 133/77
--- NOTE | 2024-05-28 03:19 | NUR ---
SHIFT SUMM: PT IS A 78 YO FULL CODE WHO WAS ADMITTED FOR COPD EXACERBATION. PT HAS BEEN COOPERATIVE AND PLEASANT WITH CARE. A&OX4 AND CALLS NEEDED. PT USES CPAP AT NIGHT TO SLEEP AND RA DURING THE DAY. PT USES URINAL AND FWW 1 ASSIST. PT IS ON TELE SR @80 WITH A BBB, PACEMAKER AND DID HAVE 20 BEATS OF VTACH BUT THEN RETURNED TO NSR AND NO EVENTS SINCE. PT IS AC/HS CBG CHECK. PT HAS LIMITED RANGE OF MOTION ON R SHOULDER AND BLIND IN LEFT EYE. PT HAS CALL LIGHT IN REACH AND BED SET TO LOWEST POSITION.
[2024-05-28 04:40] VITALS: BP 126/84
[2024-05-28 05:59] LABS: BASOPHILS ABSOLUTE AUTO 0.02 K/mm3 (0.00-0.23); BASOPHILS PERCENT AUTO 0 % (0-2); EOSINOPHILS PERCENT AUTO 0 % (0-6); Hematocrit 40.6 % (37.0-53.0); Hemoglobin 12.7 g/dL (13.5-17.5); IMMATURE GRAN ABSOLUTE AUTO 0.18 K/mm3 (0.00-0.10); IMMATURE GRAN PERCENT AUTO 1 % (0-1); LYMPHOCYTES PERCENT AUTO 4 % (21-46); MONOCYTES ABSOLUTE AUTO 0.64 K/mm3 (0.16-1.47); MONOCYTES PERCENT AUTO 3 % (4-13); Mean Corpuscular HGB 24.5 pg (26.0-34.0); Mean Corpuscular HGB Conc 31.3 g/dL (31.5-36.5); Mean Corpuscular Volume 78 fL (80-100); Mean Platelet Volume 10.1 fL (9.1-12.4); NEUTROPHILS ABSOLUTE AUTO 20.45 K/mm3 (1.96-9.15); NEUTROPHILS PERCENT AUTO 93 % (41-73); Platelet Count 202 K/mm3 (150-400); RDW Coefficient Variation 18.3 % (11.7-14.2); RDW Standard Deviation 51.7 fL (35.1-46.3); Red Blood Cell Count 5.18 M/mm3 (4.30-5.90); White Blood Cell Count 22.09 K/mm3 (4.00-11.30)
[2024-05-28] MEDS ORDERED: Levothyroxine Sodium 0.05 MG Tab PO SCH (06:00)
[2024-05-28] MEDS ORDERED: Omeprazole 20 MG CapCR PO SCH (06:00)
[2024-05-28 06:28] LABS: Albumin, Blood 3.2 g/dL (3.4-5.0); Albumin/Globulin Ratio 0.9 (0.8-1.8); Bilirubin, Total 1.1 mg/dL (0.1-1.0); Bun/Creatinine Ratio 21.4 (12.0-20.0); Calcium, Blood 9.5 mg/dL (8.5-10.1); Creatinine, Blood 1.45 mg/dL (0.60-1.20); Globulin, Blood 3.5 g/dL (2.2-4.0); Potassium, Blood 4.5 mmol/L (3.5-5.5); Total Protein, Blood 6.7 g/dL (6.4-8.2)
[2024-05-28 07:27] VITALS: BP 125/70
[2024-05-28] MEDS ORDERED: PROAIR DIGIHAL90 MCG (12:16)
[2024-05-28] MEDS ORDERED: AZIT250 PO (12:17)
[2024-05-28] MEDS ORDERED: SYMBICORT 80-10.2 GM INH (12:18)
--- NOTE | 2024-05-28 15:51 | NUR ---
DISCHARGE NOTE PT A&OX4. PT ADMITTED DUE TO COPD EXAC. PT ON ROOM AIR MAINTAINGING 95% TODAY. PT REPORTED NO CHEST DISCOMFORT PAIN OR SOB. PT EATS ADEQUATE, PT IS A SBA W FWW TO TOILET. DR. SHEPARD ORDERED DISCHARGE. PT HAD HOME O2 EVAL COMPLETE. RESPIRATORY THERAPY REPORTED PT WILL GO HOME ON ROOM AIR. WENT OVER DISCHARGE INSTRUCTIONS AND MEDS. MEDS FAXED TO [facility]. AT BEDSIDE TODAY. PT WENT WITH BELONGINGS. PT ESCORTED VIA WHEELCHAIR BY AVIATION MECHANIC. IV D/C'D.
== END 2024-05-28 15:34 | disposition home or self-care (01) ==
LOC: ER 02:05 → ERHOLD 02:06 → MEDS 05:47 → ERHOLD 05:47 → MEDS 05:47 → ER 05:47 → ERHOLD 08:52 → MEDS 08:52
PROVIDERS: Emergency Medicine; ADMIT Internal Medicine
PROC: 5A09357 Assistance with Respiratory Ventilation, Less than 24 Consecutive Hours, Continuous Positive Airway Pressure (ICD-10-PCS; principal; 2024-05-27)
PROC: 4A033R1 Measurement of Arterial Saturation, Peripheral, Percutaneous Approach (ICD-10-PCS; 2024-05-27)
DX: J96.01 Acute respiratory failure with hypoxia (principal); J44.1 Chronic obstructive pulmonary disease with (acute) exacerbation; F32.A Depression, unspecified; G47.33 Obstructive sleep apnea (adult) (pediatric); E11.9 Type 2 diabetes mellitus without complications; Z95.2 Presence of prosthetic heart valve; E03.9 Hypothyroidism, unspecified; I10 Essential (primary) hypertension; Z99.81 Dependence on supplemental oxygen; Z88.0 Allergy status to penicillin; Z91.013 Allergy to seafood; Z88.8 Allergy status to other drugs, medicaments and biological substances; E78.5 Hyperlipidemia, unspecified; K21.9 Gastro-esophageal reflux disease without esophagitis; N40.0 Benign prostatic hyperplasia without lower urinary tract symptoms; Z79.899 Other long term (current) drug therapy; Z79.01 Long term (current) use of anticoagulants; Z79.890 Hormone replacement therapy; R53.1 Weakness
CPT/HCPCS: 0241U; 36415; 36600; 51798; 71045; 80053; 82803; 82947; 83880; 84484; 85025; 93005; 93010; 94644; 94645; 94664; 94761; 94762; 96374; 96375; 99285-25; A9270; G0378; J0456; J2405; J2919; J7030; J7050

== ENCOUNTER 2024-09-22 09:59 | Emergency (ER) | payer OTHER ==
[~2024-09-22] VITALS: Ht 188 cm; Wt 147.4 kg
[~2024-09-22 09:59] MED LIST changes: +BACTRIM DS TAB1 EAC1 PO; +NITR100CA PO; +PROAIR DIGIHAL90 MCG; +SYMBICORT 80-10.2 GM INH
[2024-09-22 10:27] VITALS: BP 149/95
[2024-09-22] MEDS ORDERED: NS 1,000 ML IV SCH (10:30)
[2024-09-22 10:56] LABS: BASOPHILS ABSOLUTE AUTO 0.04 K/mm3 (0.00-0.23); BASOPHILS PERCENT AUTO 0 % (0-2); EOSINOPHILS ABSOLUTE AUTO 0.20 K/mm3 (0.00-0.68); EOSINOPHILS PERCENT AUTO 2 % (0-6); Hematocrit 48.4 % (37.0-53.0); Hemoglobin 14.8 g/dL (13.5-17.5); IMMATURE GRAN ABSOLUTE AUTO 0.05 K/mm3 (0.00-0.10); IMMATURE GRAN PERCENT AUTO 0 % (0-1); LYMPHOCYTES ABSOLUTE AUTO 1.92 K/mm3 (0.84-5.20); LYMPHOCYTES PERCENT AUTO 17 % (21-46); MONOCYTES ABSOLUTE AUTO 0.80 K/mm3 (0.16-1.47); MONOCYTES PERCENT AUTO 7 % (4-13); Mean Corpuscular HGB Conc 30.6 g/dL (31.5-36.5); Mean Corpuscular Volume 82 fL (80-100); NEUTROPHILS ABSOLUTE AUTO 8.45 K/mm3 (1.96-9.15); NEUTROPHILS PERCENT AUTO 74 % (41-73); NRBC ABSOLUTE 0.00 K/mm3 (0.00-0.02); NRBC Auto 0.0 /100 WBC (0.0-0.2); Platelet Count 285 K/mm3 (150-400); RDW Coefficient Variation 17.2 % (11.7-14.2); RDW Standard Deviation 48.8 fL (35.1-46.3)
[2024-09-22 11:17] LABS: Alanine Aminotransfer (ALT/SGP 19.0 U/L (12-78); Albumin, Blood 3.7 g/dL (3.4-5.0); Albumin/Globulin Ratio 0.9 (0.8-1.8); Anion Gap 6.0 mmol/L (3-11); Aspartate Aminotrans (AST/SGOT 12.0 U/L (12-37); Bilirubin, Total 1.4 mg/dL (0.1-1.0); Blood Urea Nitrogen 20.0 mg/dL (8-24); CO2, Blood 26.0 mmol/L (21-32); Calcium, Blood 9.9 mg/dL (8.5-10.1); Chloride, Blood 109.0 mmol/L (98-108); Creatinine, Blood 1.38 mg/dL (0.60-1.20); Globulin, Blood 3.9 g/dL (2.2-4.0); Glucose, Blood 177.0 mg/dL (70-99); Potassium, Blood 4.0 mmol/L (3.5-5.5); Sodium, Blood 137.0 mmol/L (136-145); Total Protein, Blood 7.6 g/dL (6.4-8.2)
[2024-09-22] MEDS ORDERED: Lidocaine 2% Viscous Soln 15 ML UDC PO ONE (13:25)
== END 2024-09-22 13:58 | disposition home or self-care (01) ==
LOC: ER 09:59
PROVIDERS: Emergency Medicine
DX: T50.991A Poisoning by other drugs, medicaments and biological substances, accidental (unintentional), initial encounter (principal); K20.90 Esophagitis, unspecified without bleeding; Z88.8 Allergy status to other drugs, medicaments and biological substances; Z79.899 Other long term (current) drug therapy; Z79.51 Long term (current) use of inhaled steroids
CPT/HCPCS: 70491; 71260; 80053; 85025; 99284-25; A9270; Q9967